=== PATIENT | male | born 1970 | race African-American/Black ===

== ENCOUNTER 2023-02-26 18:25 | Emergency (ER) | payer MEDICARE, MEDICAID, SELFPAY ==
[2023-02-26 18:28] VITALS: PULSE 94; RESP 16; TEMP 37; O2SAT 98; BMI 28.5
--- NOTE | 2023-02-26 18:32 | ED.GENADUL1 ---
HPI - General Adult General Chief complaint: Altered Mental Status Stated complaint: ULTERED MENTAL STATUS Time Seen by Provider: 02/26/23 18:32 Source: patient and other Source information: EMS Mode of arrival: ambulance Limitations: no limitations History of Present Illness HPI narrative: 52-year-old male past medical history of schizophrenia who resides at [facility] presents by squad because the half-way staff [facility] that [facility] was [facility] in [facility]-way by the state month ago. Squad states that he has not been given his psychiatric medications by the half-way. Squad states that he was calm for them on the way here without agitation. Patient states that he feels fine and does not want to go back to [facility]. Related Data Allergies Allergy/AdvReac Type Severity Reaction Status Date / Time citalopram [From Celexa] Allergy Unknown Verified 02/26/23 18:32 risperidone [From Risperdal] Allergy Unknown Verified 02/26/23 18:32 Review of Systems ROS Status of ROS 10 or more systems reviewed and unremarkable except as noted in history and below Exam Narrative Exam Narrative: General: alert, no distress, talking in full an complete sentences skin: warm, dry, intact head: normocephalic, atraumatic eyes: EOMI, normal conjunctiva nose: nares patent neck: supple, trachea midline cardiac: +S1/S1. no murmur respiratory: lungs CTA, non-labored, no wheezing, no retractions extremities: FROM x 4, strength +5/5, capillary refill intact neuro: A&Ox3 psych: appropriate mood and affect, cooperative Constitutional Vital Signs, click to edit/add: Last Vital Signs Temp 98.6 F 02/26/23 18:28 Pulse 94 H 02/26/23 18:28 Resp 16 02/26/23 18:28 BP 149/95 H 02/26/23 18:33 Pulse Ox 98 02/26/23 18:28 O2 Del Method Room Air 02/26/23 18:28 Course Vital Signs Vital signs: Vital Signs Temperature 98.6 F 02/26/23 18:28 Pulse Rate 94 H 02/26/23 18:28 Respiratory Rate 16 02/26/23 18:28 Pulse Oximetry 98 02/26/23 18:28 Oxygen Delivery Method Room Air 02/26/23 18:28 Temperature 98.6 F 02/26/23 18:28 Pulse Rate 94 H 02/26/23 18:28 Respiratory Rate 16 02/26/23 18:28 Blood Pressure 149/95 H 02/26/23 18:33 Pulse Oximetry 98 02/26/23 18:28 Oxygen Delivery Method Room Air 02/26/23 18:28 Medical Decision Making MDM Narrative Medical decision making narrative: Patient was transferred here for agitation and has been called for EMS and our staff and he does not need a further work-up in the ER and will be discharged back to the half-way. F/u with PCP. afebrile, not tachypneic, not tachycardic, tolerating p.o., not hypoxic, non toxic appearing and ambulating at baseline and hemodynamically stable to be d/c. answered all questions. pt in agreement with tx. educated when to return to ER. Discharge Plan Discharge Chief Complaint: Altered Mental Status Clinical Impression: Agitation Patient Disposition: [facility] Time of Disposition Decision: 18:32 Discharge Location: [place] Condition: Good Mode of Transportation: Private Vehicle Instructions: Depression (ED) Stand Alone Forms: Portal Instructions
[2023-02-26 18:33] VITALS: BP 149/95
--- NOTE | 2023-02-27 00:36 | PC.NURSE ---
Nursing staff from [facility] called to get report for this patient. I spoke with Jackie, informed her that the nursing staff in this ED had tried to call them several times to get a nursing report, then to give a nursing report and were unable to get through. She states that their phones are not working. I informed her that the patient denied anything being wrong and was A/O x4 on arrival, and since there was no report called by their facility our staff was not sure why the patient was sent here or what the facility was wanting done. Jackie states she was told thata the DON from [facility] had called report, but I informed her that infact, no report had been received. She states that the patient has been very aggressive, hostile, schizo affective, demanding, he has called 911 to the facility, they have had to call the police on him numerous times. They were hoping we would be able to find placement for him, and I again informed her that since we had no idea about these things, we could not intervene. I apologized that he was not worked up in this ED the way they wanted him to be and reiterated the importance of nurse to nurse report.
== END 2023-02-26 23:20 ==
PROVIDERS: Emergency Provider Emergency Medicine
DX: R45.1 Restlessness and agitation (principal); F20.9 Schizophrenia, unspecified; Z79.899 Other long term (current) drug therapy
CPT/HCPCS: 99283